=== PATIENT | female | born 1950 | race Hispanic/Latino ===

== ENCOUNTER → 2025-04-17 | Outpatient (CLI) | payer OTHER, MEDICARE ==
--- NOTE | 2025-04-19 06:38 | HMCIMG ---
EXAM: CR left Shoulder, 2 View. CLINICAL HISTORY: LEFT SHOULDER PAIN COMPARISON: None provided. FINDINGS: BONES: No acute fracture or aggressive appearing osseous lesion. JOINTS: No dislocation. There are mild degenerative changes. SOFT TISSUES: The soft tissues are unremarkable. IMPRESSION: No fracture or dislocation in the left shoulder. Mild degenerative change. /[place]
== END | disposition home or self-care (01) ==
LOC: RAH 12:54
PROVIDERS: ATTEND Nurse Practitioner Family
DX: M19.012 Primary osteoarthritis, left shoulder (principal); M25.512 Pain in left shoulder
CPT/HCPCS: 73030